=== PATIENT | male | born 1990 | race Two or more races ===

== ENCOUNTER 2021-03-23 20:05 | Emergency (ER) | payer SELFPAY ==
[~2021-03-23] VITALS: Ht 170.2 cm; Wt 74.8 kg
[2021-03-23 23:53] VITALS: BP 110/67
[2021-03-24] MEDS ORDERED: ACETAMINOPHEN 500 MG TAB PO ONE
[2021-03-24] MEDS ORDERED: IBUPROFEN 800 MG TAB PO ONE
[2021-03-24] MEDS ORDERED: IBUP800T27 PO (01:28)
[2021-03-24] MEDS ORDERED: METH500T22 PO (01:28)
== END 2021-03-24 01:43 | disposition home or self-care (01) ==
LOC: EDBD 20:05 → ER 20:05
DX: S13.4XXA Sprain of ligaments of cervical spine, initial encounter (principal); M25.562 Pain in left knee; V43.52XA Car driver injured in collision with other type car in traffic accident, initial encounter; Y93.89 Activity, other specified; Y92.410 Unspecified street and highway as the place of occurrence of the external cause; Y99.8 Other external cause status
CPT/HCPCS: 29515; 70450; 72125; 73590